=== PATIENT | female | born 1995 ===

== ENCOUNTER 2017-05-23 10:59 | Emergency (ER) | payer OTHER ==
[2017-05-23 11:43] VITALS: BP 142/94
--- NOTE | 2017-05-23 12:29 | UC ---
Eye Complaint HPI - HPI Summary HPI Summary: patient has a right eye irritation , does nknow if she got something in her eye , started this morning - History of Current Complaint Chief Complaint: UCEye Stated Complaint: RT EYE IRRITATION Hx Obtained From: Patient ?: No Onset/Duration: Sudden Onset, Lasting Hours Timing: Constant Severity Initially: Moderate Severity Currently: Moderate Location of Injury: Eye Lid (upper), Sclera - Allergies/Home Medications Allergies/Adverse Reactions: Allergies Allergy/AdvReac Type Severity Reaction Status Date / Time No Known Allergies Allergy Verified 05/23/17 11:43 PMH/Surg Hx/FS Hx/Imm Hx Previously Healthy: Yes - Surgical History Surgical History: None - Family History Known Family History: Negative: Cardiac Disease, Hypertension - Social History Alcohol Use: Rare Substance Use Type: None Smoking Status (MU): Never Smoked Tobacco Review of Systems Constitutional: Negative Skin: Negative Eyes: Drainage, Eye Redness ENT: Negative Respiratory: Negative Cardiovascular: Negative Gastrointestinal: Negative Genitourinary: Negative Motor: Negative Neurovascular: Negative Musculoskeletal: Negative Neurological: Negative Psychological: Negative Is Patient Immunocompromised?: No All Other Systems Reviewed And Are Negative: Yes Physical Exam Triage Information Reviewed: Yes Appearance: Well-Appearing, Well-Nourished, Pain Distress Vital Signs: Initial Vital Signs Temp 98.2 F 05/23/17 11:40 Pulse 90 05/23/17 11:40 Resp 12 05/23/17 11:40 BP 142/94 05/23/17 11:40 Pulse Ox 100 05/23/17 11:40 Vital Signs Reviewed: Yes Eye Exam: Normal ENT Exam: Normal ENT: Positive: Pharynx normal, TMs normal Dental Exam: Normal Neck exam: Normal Neck: Positive: Supple, Nontender, No Lymphadenopathy Respiratory Exam: Normal Respiratory: Positive: Chest non-tender, Lungs clear, Normal breath sounds Cardiovascular Exam: Normal Cardiovascular: Positive: RRR, No Murmur, Pulses Normal Abdominal Exam: Normal Abdomen Description: Positive: Nontender, No Organomegaly, Soft Bowel Sounds: Positive: Present Musculoskeletal Exam: Normal Musculoskeletal: Positive: Strength Intact, ROM Intact, No Edema Neurological Exam: Normal Neurological: Positive: Alert, Muscle Tone Normal Psychological Exam: Normal Skin Exam: Normal Eye Complaint Course/Dx - Course Course Of Treatment: hx obtained, exam performed ,meds reviewed, eye exa performed, no FB seen, sclera red and irritated, drainage noted - Differential Dx/Diagnosis Differential Diagnosis/HQI/PQRI: Conjunctivitis, Foreign Body Provider Diagnoses: conjunctivitis Discharge - Discharge Plan Condition: Stable Disposition: HOME Prescriptions: Erythromycin OPHTH.OINT* [Ilotycin OPHTH.OINT*] 1 applic RIGHT EYE TID #1 tube Patient Education Materials: Conjunctivitis (ED) Referrals: No Primary Care Phys,NOPCP [Primary Care Provider] - Additional Instructions: 1. apply warm compresses to the eye frequent;y 2. Use the medication as prescribed.
== END 2017-05-23 12:38 | disposition home or self-care (01) ==
LOC: UCCORT 10:59
DX: H10.9 Unspecified conjunctivitis (principal)
CPT/HCPCS: 99202; G0463